=== PATIENT | female | born 1995 | race Caucasian/White ===

== ENCOUNTER 2021-04-14 13:21 | Outpatient (CLI) | payer OTHER | END 2021-04-14 13:22 | disposition home or self-care (01) | LOC: BICULT 13:21 | PROVIDERS: ATTEND Family Medicine | DX: O09.892 Supervision of other high risk pregnancies, second trimester (principal); Z3A.20 20 weeks gestation of pregnancy | CPT/HCPCS: 76805 ==

== ENCOUNTER 2021-10-31 14:03 | Emergency (ER) | payer OTHER | END 2021-10-31 14:42 | disposition home or self-care (01) | LOC: ERS 14:03 | DX: K03.81 Cracked tooth (principal) | CPT/HCPCS: 99282 ==

== ENCOUNTER 2022-03-26 01:44 | Emergency (ER) | payer OTHER | END 2022-03-26 02:55 | disposition home or self-care (01) | LOC: ERS 01:44 | DX: S09.21XA Traumatic rupture of right ear drum, initial encounter (principal) | CPT/HCPCS: 99282 ==

== ENCOUNTER 2022-04-28 20:02 | Emergency (ER) | payer OTHER ==
[2022-04-28] MEDS ORDERED: Proparacaine 0.5% Opth 15 ML BOT ONE (20:45)
[2022-04-28] MEDS ORDERED: Fluorescein Opthalmic Strip ONE (20:45)
== END 2022-04-28 21:23 | disposition home or self-care (01) ==
LOC: ERS 20:02
DX: H57.12 Ocular pain, left eye (principal)
CPT/HCPCS: 99283